=== PATIENT | male | born 1955 | race Caucasian/White ===

== ENCOUNTER 2017-09-16 20:06 | Emergency (ER) | payer OTHER ==
[~2017-09-16] VITALS: Ht 170.2 cm; Wt 92.1 kg
[~2017-09-16 20:06] MED LIST: ASPI325T45 PO; LPT40 PO; TNR50 PO
[2017-09-16 20:08] VITALS: TEMP 36.9; Ht 170.2 cm; Wt 92.1 kg
[2017-09-16 20:45] LABS: BASO % 0.3 %; BASO ABS # 0.02 K/uL (0-0.2); COMPLETE YES; EOS % 1.9 %; HEMATOCRIT 45.1 % (42-52); IG% 0.3 %; LYMPH % 19.4 %; LYMPH ABS # 1.54 K/uL (1.2-3.4); MEAN CELL VOLUME 87.2 fL (80-100); MEAN CORPUSCULAR HEMOGLOBIN 29.8 pg (25-34); MEAN CORPUSCULAR HGB CONC 34.1 g/dl (32-36); MEAN PLATELET VOLUME 9.4 fL (7.4-10.4); MONO % 10.6 %; NEUT % 67.5 %; PLATELET COUNT 200 K/uL (130-400); RED BLOOD COUNT 5.17 M/uL (4.7-6.1); WHITE BLOOD COUNT 7.95 K/uL (4.8-10.8)
[2017-09-16 21:09] LABS: BUN/CREATININE RATIO 19.8 (10-20); CALCIUM 8.6 mg/dl (8.5-10.1); CREATININE 1.31 mg/dl (0.60-1.40); POTASSIUM 3.9 mmol/L (3.5-5.1)
[2017-09-16] MEDS ORDERED: HIV POST EXPOSURE PROPHYLAXIS KIT STA (21:09)
--- NOTE | 2017-09-16 21:18 | EMERGENCY ROOM VISIT NOTE ---
History First contact with patient: 20:12 Chief Complaint: NEEDLE STICK Stated Complaint: NEEDLE STICK History of Present Illness The patient is a 62 year old male who presents to the Emergency Room with complaints of "needle stick". 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 He notes the area was bleeding. He is unsure of what the object was or who the patient may have been that this was from. His tetanus is up-to-date. He notes no pain. The region was cleansed. Review of Systems A complete 6-point Review of Systems was discussed with the patient, with pertinent positives and negatives listed in the History of Present Illness. All remaining Review of Systems questions can be considered negative unless otherwise specified. Past Medical/Surgical History Non contributory Family History Non contributory Social History Smoking Status: Never Smoker Alcohol Use: none Marital Status: single Patient is employed here and lives locally. Current/Historical Medications Scheduled Aspirin (Aspirin), 325 MG PO HS Atenolol (Atenolol), 50 MG PO HS Atorvastatin (Atorvastatin Calcium), 40 MG PO HS Emtricitabine/Temofovir (Truvada 200/300MG), 1 TAB PO DAILY Raltegravir Potassium (Isentress), 1 TAB PO BID Physical Exam Vital Signs Date Time Temp Pulse Resp B/P (MAP) Pulse Ox O2 Delivery O2 Flow Rate FiO2 09/16/17 21:38 69 20 124/79 97 09/16/17 20:08 36.9 76 18 139/86 96 Room Air Physical Exam VITAL SIGNS - Vital signs and nursing notes were reviewed. Stable. GENERAL -62-year-old male appearing his stated age who is in no acute distress. Communicates well with provider and answers questions appropriately. SKIN - Without rashes. Small punctate puncture wound noted to the palmar aspect of the left hand between the MCPs of the second and third digits. No active bleeding noted. No foreign body appreciated. EXTREMITIES - good blood flow to the hand without evidence of neurovascular compromise. Medical Decision & Procedures Laboratory Results 09/16/17 20:35 Red Blood Count 5.17, Mean Corpuscular Volume 87.2, Mean Corpuscular Hemoglobin 29.8, Mean Corpuscular Hemoglobin Concent 34.1, Mean Platelet Volume 9.4, Neutrophils (%) (Auto) 67.5, Lymphocytes (%) (Auto) 19.4, Monocytes (%) (Auto) 10.6, Eosinophils (%) (Auto) 1.9, Basophils (%) (Auto) 0.3, Neutrophils # (Auto ) 5.38, Lymphocytes # (Auto) 1.54, Monocytes # (Auto) 0.84, Eosinophils # (Auto ) 0.15, Basophils # (Auto) 0.02 09/16/17 20:35 Test 09/16/17 20:35 White Blood Count 7.95 K/uL (4.8-10.8) Red Blood Count 5.17 M/uL (4.7-6.1) Hemoglobin 15.4 g/dL (14.0-18.0) Hematocrit 45.1 % (42-52) Mean Corpuscular Volume 87.2 fL (80-100) Mean Corpuscular Hemoglobin 29.8 pg (25-34) Mean Corpuscular Hemoglobin Concent 34.1 g/dl (32-36) Platelet Count 200 K/uL (130-400) Mean Platelet Volume 9.4 fL (7.4-10.4) Neutrophils (%) (Auto) 67.5 % Lymphocytes (%) (Auto) 19.4 % Monocytes (%) (Auto) 10.6 % Eosinophils (%) (Auto) 1.9 % Basophils (%) (Auto) 0.3 % Neutrophils # (Auto) 5.38 K/uL (1.4-6.5) Lymphocytes # (Auto) 1.54 K/uL (1.2-3.4) Monocytes # (Auto) 0.84 K/uL (0.11-0.59) Eosinophils # (Auto) 0.15 K/uL (0-0.5) Basophils # (Auto) 0.02 K/uL (0-0.2) RDW Standard Deviation 39.9 fL (36.4-46.3) RDW Coefficient of Variation 12.5 % (11.5-14.5) Immature Granulocyte % (Auto) 0.3 % Immature Granulocyte # (Auto) 0.02 K/uL (0.00-0.02) Anion Gap 4.0 mmol/L (3-11) Est Creatinine Clear Calc Drug Dose 63.3 ml/min Estimated GFR () 67.2 Estimated GFR (Non- 57.9 BUN/Creatinine Ratio 19.8 (10-20) Calcium Level 8.6 mg/dl (8.5-10.1) Total Bilirubin 0.4 mg/dl (0.2-1) Aspartate Amino Transf (AST/SGOT) 24 U/L (15-37) Alanine Aminotransferase (ALT/SGPT) 41 U/L (12-78) Alkaline Phosphatase 88 U/L (45-117) Total Protein 6.9 gm/dl (6.4-8.2) Albumin 3.5 gm/dl (3.4-5.0) Globulin 3.4 gm/dl (2.5-4.0) Albumin/Globulin Ratio 1.0 (0.9-2) Medications Administered Medications (Trade) Dose Ordered Sig/Adonis Route Start Time Stop Time Status Last Admin Dose Admin Miscellaneous (Hiv Post Exposure Prophylaxis Kit) 1 ea NOW STAT N/A 09/16/17 21:09 09/16/17 21:10 DC 09/16/17 21:35 1 EA Medical Decision Patient was seen and evaluated as above. He presents to us today status post injury where a red biohazard bag had a sharp object penetrate through the bag through his glove and into his hand. This was in the laboratory area and other areas of the hospital today. Although the HIV risk and transmission risk is very low, because it was a biohazard bag and a sharp object which should not be in bag punctured through in a nature of which could be consistent with that of a needle I believe that HIV prophylaxis should be initiated. The case was discussed with the attending physician and I did initiate/try to call the PEP hotline however they were closed. I then queried their website. Although the risk is very low given the patient's unique circumstances I believe that the PEP should be initiated. Patient is in agreement. Baseline labs as well as yellow tubes for infectious testing by [employer] were obtained. Patient' s kidney function is slightly elevated as he appears to be dehydrated. He was educated upon this he is to follow-up with his family doctor. A phone call was placed to the employee health department regarding the patient's case. He is to follow up with them. He was given a three-day supply of the medication from here and subsequently the remainder was sent to his pharmacy for pickup. The wound was cleansed and dressed with a bacitracin dressing. Betadine was used. Patient was educated upon management, educated upon worrisome symptoms which to return, had questions as per discharge, and was discharged home in good condition. Impression Primary Impression: Sharps injury Departure Information Dispostion Home / Self-Care Condition GOOD Prescriptions Raltegravir Potassium (ISENTRESS) 400 Mg Tab 1 TAB PO BID for 25 Days, #25 TAB 0 Refills Prov: Arturo Dewey PA-C 09/16/17 Emtricitabine/Temofovir (Truvada 200/300MG) Tab 1 TAB PO DAILY for 25 Days, #25 TAB 0 Refills Prov: Arturo Dewey PA-C 09/16/17 Referrals Harjeet Haines M.D. (PCP) Patient Instructions My [facility] Additional Instructions You were seen in the emergency Department for a sharps accident to your left hand. As we discussed the chance of you acquiring HIV from this injury is very low however given the nature of the injury will begin prophylaxis. It is Truvada 1 tablet daily for 28 days. You were given the first 3 day supply here. The second medication is Isentress or Truvada which is 1 tablet every 12 hours for 28 days as well. Other 25 days sent to pharmacy for pickup. Please follow with [facility] by speaking with Ms. Nay Browning. If you've any difficulty please return here. Please follow with your family doctor as you do appear to be dehydrated with your kidney function here today. Please return with any new/concerning symptoms. Thank you for your time.
[2017-09-16] MEDS ORDERED: TRVHP PO (21:23)
[2017-09-16] MEDS ORDERED: RALT400T PO (21:23)
[2017-09-16 21:38] VITALS: BP 124/79; PULSE 69; O2SAT 97
== END 2017-09-16 21:41 | disposition home or self-care (01) ==
LOC: C.EDB 20:07 → C.EDD 21:41
DX: S61.432A Puncture wound without foreign body of left hand, initial encounter (principal); X58.XXXA Exposure to other specified factors, initial encounter; Y92.239 Unspecified place in hospital as the place of occurrence of the external cause; Y99.0 Civilian activity done for income or pay

== ENCOUNTER 2025-09-13 09:17 | Inpatient (IN) ==
[2025-09-13] MEDS: SODIUM CHLORIDE 0.9% 1,000 ML IV ONE (09:44)
[2025-09-13 09:53] LABS: Hematocrit (blood only) 47.8 % (42.0-52.0); Hemoglobin 16.1 g/dL (14.0-18.0); Immature Granulocytes # (auto) 0.05 K/uL (0.01-0.20); Immature Granulocytes % (auto) 0.6 %; Mean Corpuscular Hemoglobin 29.5 pg (25.0-34.0); Mean Corpuscular Volume 87.7 fL (80.0-100.0); Platelet Count 230 K/uL (130-400); RDW Standard Deviation 37.7 fL (36.4-46.3); Red Blood Count 5.45 M/uL (4.70-6.10); White Blood Count 8.34 K/ul (4.8-10.8)
--- NOTE | 2025-09-13 10:00 | Emergency Department Note ---
Impression & Plan New onset a-fib, Atrial fibrillation with rapid ventricular response, Chest tightness, Shortness of breath ED Provider Note NAME: SHRUTI GUPTA AGE: 70 SEX: M : 1955 ARRIVES VIA: Walk-In INFORMANT: Patient ED PROVIDER(S): Erick Early MD CHIEF COMPLAINT: Shortness of breath, chest pain PLAN: Disposition: Admit MEDICAL DECISION MAKING: The patient is a pleasant 70-year-old gentleman with a past medical history of heart disease, hypertension, hyperlipidemia who presents to the emergency department via walk-in accompanied by his for evaluation of chest pain and shortness of breath over the past 24 hours with fatigue/achy and shortness of breath beginning a couple of days ago. Patient denies any overt cough or congestion. However he is reminded of his symptoms a year ago which were similar and he was diagnosed with pneumonia. Of note, when patient was initially asked if he had a history of atrial fibrillation both he and his replied that he did saying that he had had "this" since he was in his 30s. However in retrospect after further assessment and review of his record he may be referring to having history of palpitations and possibly PVCs but there is no documented history of history of atrial fibrillation in the [facility] system. On my evaluation the patient no distress, fatigued appearing, afebrile with heart rate in the 120s-130s in atrial fibrillation vital signs otherwise stable. He appears clinically dry. EKG demonstrates atrial fibrillation with RVR in the 140s without overt acute ischemia. Chest x-ray negative for acute cardiopulmonary process per my preliminary independent interpretation. WBC, H/H and platelets within normal limits. Chemistry without metabolic acidosis. BUN/creatinine 27 consistent with patient's clinically dry appearance. LFTs are unremarkable. High-sensitivity troponin 6.1, within normal limits. Lipase is normal. Procalcitonin is not elevated. TSH within normal limits. COVID-19, influenza and and RSV PCR's were negative. The patient was treated with IV fluid hydration, IV APAP as well as 5 mg of IV Lopressor x 2 where he did experience some improvement in rate though still in the 110s-120s. Given the persistence of the patient's RVR which now after further review of the patient's record appears to be a new diagnosis the patient does agree with plan for admission for further management. Case was discussed with Dr. Kraft, [facility] hospitalist, who will evaluate the patient for admission. Further management including anticoagulation and rate control per admitting team. Triage Nursing notes reviewed and agree them. Prior/external medical records reviewed Vital Signs: reviewed Differential diagnosis: Reactive airway disease, pneumonia, pneumothorax, COPD, CHF, infections, cardiac ischemia, pulmonary embolism, musculoskeletal, gastrointestinal, as well as other pathologies. ER treatment provided: See below. Diagnostics interpreted by me: ECG: Atrial fibrillation with RVR, 140 bpm, no overt ST elevation or depression, QTc 464, QRS 82. Cardiac Monitoring: An order for continuous cardiac monitoring was placed and demonstrated atrial fibrillation with RVR, 140 bpm, no ectopy. Laboratory studies: See below Imaging studies: See below Consultation(s): Case was discussed with Dr. Kraft, [facility] hospitalist, who will evaluate the patient for admission. HPI: Per MDM. ROS: See above HPI for pertinent positives & negatives. A total of 10 systems reviewed and were otherwise negative. VITALS:See Below PHYSICAL EXAMINATION: GENERAL: Awake, alert, fartigued-appearing, in no distress HENT: Normocephalic, atraumatic. Oropharynx with dry mucous membranes and otherwise unremarkable. EYES: Normal conjunctiva. Sclera non-icteric. NECK: Supple. No nuchal rigidity. FROM. No JVD. RESPIRATORY: Clear to auscultation. CARDIAC: Tachycardic rate, irregular rhythm. Extremities warm and well perfused. Pulses equal. ABDOMEN: Soft, non-distended. No tenderness to palpation. No rebound or guarding. No masses. MUSCULOSKELETAL: Chest examination reveals no tenderness. The back is symmetrical on inspection without obvious abnormality. There is no CVA tenderness to palpation. No joint edema. LOWER EXTREMITIES: Calves are equal size bilaterally and non-tender. No edema. No discoloration. NEURO: Normal sensorium. No sensory or motor deficits noted. SKIN: No rash or jaundice noted. ED COURSE: Critical Care: I have personally spent greater than 35 minutes of critical care time in the direct management of this patient. This includes bedside care, interpretation of diagnostic studies, and testing, discussion with consultants, patient, and family members, and other required patient management activities. This 35 minutes is in excess of all separately billable procedures. Erick Early MD Past Med/Surg History Problem List (Updated 09/15/25 @ 14:30 by Erick Early MD) Shortness of breath (Acute) Chest tightness (Acute) Atypical chest pain Atrial fibrillation with rapid ventricular response (Acute) New onset a-fib (Acute) CAP (community acquired pneumonia) Encounter for pre-operative examination Heart disease Hyperlipidemia Medical History (Updated 09/15/25 @ 14:30 by Erick Early MD) Hypertension Surgical History No significant past surgical history Family History Other Diabetes Heart disease Hypertension Social History Smoking Status: Never smoker Hx Alcohol Use: No Hx Substance Use: No Preferred Language: Bel[place]an Communication Ability: Effective Him Specialists Required: No Beliefs That Will Affect Care: None marital status: Single Current Living Situation: Family current occupational status: employed Feels Safe at Home: Yes Assistive Devices: None Allergies Allergies Allergy/AdvReac Type Severity Reaction Status Date / Time Iodinated Contrast Media AdvReac Intermediate KIDNEY PAIN Verified 12/13/24 11:25 Home Meds Home Medications Medication Instructions Recorded Confirmed atorvastatin 40 mg tablet 40 mg PO HS 09/05/18 09/13/25 aspirin 81 mg tablet,delayed 81 mg PO HS 12/13/24 09/13/25 release Previous Rx's Medication Instructions Recorded apixaban 5 mg tablet (Eliquis) 5 mg PO BID #60 tabs 09/14/25 metoprolol succinate 25 mg 25 mg PO QAM #30 tabs 09/14/25 tablet,extended release 24 hr Results & Data (ED) Vital Signs Vital Signs - 24 hr 09/13/25 09:23 09/13/25 09:27 09/13/25 09:44 Temperature 36.3 C L Temperature Source Temporal Artery Scan Pulse Rate 80 Pulse Rate [Apical] Pulse Rate from SpO2 Sensor Respiratory Rate 18 Respiratory Effort / Characteristics Non-Labored Respiratory Depth Normal Respiratory Pattern Regular Blood Pressure 122/82 Blood Pressure [Right Arm] Blood Pressure Mean 95 Blood Pressure Mean [Right Arm] Pulse Oximetry 96 Oxygen Delivery Method Room Air Room Air Room Air Sepsis Recent Fever Within 48 Hours No Sepsis New/Unexplained Change in Mental Status N/A Sepsis Action Taken by Nursing No Action Required 09/13/25 09:49 09/13/25 09:50 09/13/25 10:03 Temperature Temperature Source Pulse Rate 124 H 130 H Pulse Rate [Apical] Pulse Rate from SpO2 Sensor 111 H Respiratory Rate 17 Respiratory Effort / Characteristics Respiratory Depth Respiratory Pattern Blood Pressure 118/87 Blood Pressure [Right Arm] Blood Pressure Mean 97 Blood Pressure Mean [Right Arm] Pulse Oximetry 97 Oxygen Delivery Method Room Air Room Air Sepsis Recent Fever Within 48 Hours Sepsis New/Unexplained Change in Mental Status Sepsis Action Taken by Nursing 09/13/25 10:21 09/13/25 10:30 09/13/25 11:09 Temperature Temperature Source Pulse Rate 130 H 124 H 136 H Pulse Rate [Apical] Pulse Rate from SpO2 Sensor 93 H 92 H Respiratory Rate 16 18 Respiratory Effort / Characteristics Respiratory Depth Respiratory Pattern Blood Pressure 119/86 110/74 127/87 Blood Pressure [Right Arm] Blood Pressure Mean 97 86 Blood Pressure Mean [Right Arm] Pulse Oximetry 98 98 Oxygen Delivery Method Room Air Room Air Sepsis Recent Fever Within 48 Hours Sepsis New/Unexplained Change in Mental Status Sepsis Action Taken by Nursing 09/13/25 11:44 09/13/25 12:02 09/13/25 12:30 Temperature Temperature Source Pulse Rate 145 H 160 H 159 H Pulse Rate [Apical] Pulse Rate from SpO2 Sensor Respiratory Rate Respiratory Effort / Characteristics Respiratory Depth Respiratory Pattern Blood Pressure 104/81 125/83 114/81 Blood Pressure [Right Arm] Blood Pressure Mean Blood Pressure Mean [Right Arm] Pulse Oximetry Oxygen Delivery Method Sepsis Recent Fever Within 48 Hours Sepsis New/Unexplained Change in Mental Status Sepsis Action Taken by Nursing 09/13/25 12:32 Temperature Temperature Source Pulse Rate Pulse Rate [Apical] 130 H Pulse Rate from SpO2 Sensor Respiratory Rate 20 Respiratory Effort / Characteristics Non-Labored Spontaneous Respiratory Depth Normal Respiratory Pattern Regular Blood Pressure Blood Pressure [Right Arm] 108/82 Blood Pressure Mean Blood Pressure Mean [Right Arm] 90 Pulse Oximetry 99 Oxygen Delivery Method Room Air Sepsis Recent Fever Within 48 Hours Sepsis New/Unexplained Change in Mental Status Sepsis Action Taken by Nursing Laboratory Data Attestation: I reviewed the patient's lab results. 09/13/25 09:40 09/13/25 09:40 Lab Results 09/13/25 09/13/25 09/13/25 Range/Units 09:40 09:46 10:16 WBC 8.34 (4.8-10.8) K/ul RBC 5.45 (4.70-6.10) M/uL Hgb 16.1 (14.0-18.0) g/dL Hct 47.8 (42.0-52.0) % MCV 87.7 (80.0-100.0) fL MCH 29.5 (25.0-34.0) pg MCHC 33.7 (32.0-36.0) g/dL RDW Std Deviation 37.7 (36.4-46.3) fL RDW Coeff of Heavenly 11.8 (11.5-14.5) % Plt Count 230 (130-400) K/uL MPV 9.4 (9.4-12.4) fL Immature Gran % (Auto) 0.6 % Neut % (Auto) 62.9 % Lymph % (Auto) 22.4 % Cass % (Auto) 10.6 % Eos % (Auto) 3.0 % Baso % (Auto) 0.5 % Neut # (Auto) 5.25 (1.40-6.50) K/uL Lymph # (Auto) 1.87 (1.20-3.40) K/uL Cass # (Auto) 0.88 H (0.11-0.59) K/uL Eos # (Auto) 0.25 (0.00-0.50) K/uL Baso # (Auto) 0.04 (0.00-0.20) K/uL Immature Gran # (Auto) 0.05 (0.01-0.20) K/uL PT 10.3 (9.0-12.0) Seconds INR 1.0 (0.9-1.1) Sodium 139 (136-145) mmol/L Potassium 4.6 (3.5-5.1) mmol/L Chloride 106 (98-107) mmol/L Carbon Dioxide 28 (21-32) mmol/L Anion Gap 5 (3-11) BUN 26 H (6-23) mg/dl Creatinine 0.96 (0.6-1.4) mg/dl Est Cr Clr Drug Dosing 81.9 ml/min eGFR 85.03 BUN/Creatinine Ratio 27.1 H (10-20) Glucose 129 H (70-99(Fasting)) mg/dl Calcium 8.9 (8.6-10.3) mg/dl Magnesium 2.2 (1.7-2.4) mg/dl Total Bilirubin 0.6 (0.2-1.0) mg/dl AST 16 (13-39) U/L ALT 17 (7-52) U/L Alkaline Phosphatase 78 (34-104) U/L Troponin I High Sens 6.1 (0-20) pg/ml Total Protein 6.6 (6.0-8.3) gm/dl Albumin 4.0 (3.4-5.0) gm/dl Globulin 2.6 (2.5-4.0) gm/dl Albumin/Globulin Ratio 1.5 (0.9-2) Lipase 16 (11-82) U/L Procalcitonin 0.02 (0-0.5) ng/ml Free T3 2.76 (2.3-4.2) pg/ml SARS-CoV-2 (PCR) NEGATIVE (Negative) Influenza Type A (PCR) Negative (Neg) Influenza Type B (PCR) Negative (Neg) RSV (RT-PCR) Negative (Neg) Administered Medications Discontinued Medications Apixaban (Apixaban 5 Mg Tablet) 5 mg PO ONE ONE Stop: 09/13/25 13:21 Last Admin: 09/13/25 13:59 Dose: 5 mg Documented By: KR Apixaban (Apixaban 5 Mg Tablet) 5 mg PO BID MELISSA Stop: 10/13/25 20:59 Last Admin: 09/14/25 07:39 Dose: 5 mg Documented By: Admin: 09/13/25 20:13 Dose: 5 mg Documented By: KRT Aspirin (Aspirin 81 Mg Ectab) 81 mg PO HS MELISSA Stop: 10/13/25 20:59 Last Admin: 09/13/25 20:13 Dose: 81 mg Documented By: KRT Atorvastatin Calcium (Atorvastatin 40 Mg Tab) 40 mg PO HS MELISSA Stop: 10/13/25 20:59 Last Admin: 09/13/25 20:13 Dose: 40 mg Documented By: KRT Diltiazem HCl (Diltiazem Hcl 5 Mg/Ml 5 Ml Vial) 5 mg IV NOW STA Stop: 09/13/25 13:05 Last Admin: 09/13/25 13:37 Dose: Not Given Documented By: AMS Furosemide (Furosemide 40 Mg/4 Ml Vial) 40 mg IV ONE ONE Stop: 09/13/25 15:02 Last Admin: 09/13/25 17:02 Dose: 40 mg Documented By: LICHA Sodium Chloride (Nss) 1,000 mls @ 999 mls/hr IV .Q1H1M ONE Stop: 09/13/25 10:28 Last Infusion: 09/13/25 10:54 Dose: Infused Documented By: Admin: 09/13/25 09:44 Dose: 999 mls/hr Documented By: SEBASTIAN Acetaminophen (Ofirmev) 1,000 mg in 100 mls @ 400 mls/hr IV NOW STA Stop: 09/13/25 10:11 Last Infusion: 09/13/25 10:36 Dose: Infused Documented By: Admin: 09/13/25 10:20 Dose: 400 mls/hr Documented By: SEBASTIAN Diltiazem HCl 125 mg/ Dextrose 125 mls @ 0 mls/hr IV .Q0M [facility]; Protocol Stop: 10/13/25 13:19 Last Titration: 09/13/25 18:14 Dose: Infused Documented By: LICHA Co-signed By: ANTHONY Titration: 09/13/25 15:42 Dose: 0 mg/hr, 0 mls/hr Documented By: LICHA Co-signed By: TB Admin: 09/13/25 13:57 Dose: 5 mg/hr, 5 mls/hr Documented By: SAMUEL Co-signed By: ASTON Metoprolol Succinate (Metoprolol Succ 25mg Ext Rel Tab) 25 mg PO QAM [facility] Stop: 10/14/25 08:59 Last Admin: 09/14/25 07:39 Dose: 25 mg Documented By: LICHA Metoprolol Tartrate (Metoprolol Tartrate 1 Mg/Ml Vial) 5 mg IV NOW STA Stop: 09/13/25 11:00 Last Admin: 09/13/25 11:09 Dose: 5 mg Documented By: leonardo Metoprolol Tartrate (Metoprolol Tartrate 1 Mg/Ml Vial) 5 mg IV NOW STA Stop: 09/13/25 11:57 Last Admin: 09/13/25 12:02 Dose: 5 mg Documented By: leonardo Metoprolol Tartrate (Metoprolol Tartrate 25 Mg Tab) 25 mg PO BID [facility] Stop: 10/13/25 12:29 Last Admin: 09/13/25 12:37 Dose: 25 mg Documented By: KR Imaging Data Radiologist's Impression: Chest X-Ray 09/13/25 09:27 Clinical History: Chest pain Technique: A frontal view of the chest was obtained Findings: There are no confluent pulmonary infiltrates. The heart size is within normal limits. No pleural effusion or pneumothorax is seen. There is no definite pulmonary nodule. No fracture is noted. No foreign body is seen Impression: No active disease Electronically signed by Josh Ortega 09-13-2025 10:20 AM Discharge Plan Visit Data Chief Complaint: Shortness of Breath/Dyspnea Stated Complaint: SOB ED Provider: Erick Early Discharge Problem: New onset a-fib, Atrial fibrillation with rapid ventricular response, Chest tightness, Shortness of breath Patient Disposition: Admitted As Inpatient Condition: Good Discharge Instructions Interventions: ED Discharge Assessment Last Done: 09/13/25 15:06
[2025-09-13 10:10] LABS: Alanine Aminotransferase 17.0 U/L (7-52); Albumin Globulin Ratio 1.5 (0.9-2); Albumin Level 4.0 gm/dl (3.4-5.0); Alkaline Phosphatase 78.0 U/L (34-104); Anion Gap 5.0 (3-11); Bilirubin,Total 0.6 mg/dl (0.2-1.0); Blood Urea Nitrogen 26.0 mg/dl (6-23); Calcium 8.9 mg/dl (8.6-10.3); Carbon Dioxide 28.0 mmol/L (21-32); Chloride 106.0 mmol/L (98-107); Creatinine Clr Calc Pharmacy 81.9 ml/min; Globulin 2.6 gm/dl (2.5-4.0); Glucose 129.0 mg/dl (70-99(Fasting)); Lipase 16.0 U/L (11-82); Potassium 4.6 mmol/L (3.5-5.1); Sodium 139.0 mmol/L (136-145); Total Protein 6.6 gm/dl (6.0-8.3)
[2025-09-13] MEDS: ACETAMINOPHEN 1,000 MG/100 ML VIAL IV STA (10:20)
--- NOTE | 2025-09-13 10:20 | XRay Report ---
Clinical History: Chest pain Technique: A frontal view of the chest was obtained Findings: There are no confluent pulmonary infiltrates. The heart size is within normal limits. No pleural effusion or pneumothorax is seen. There is no definite pulmonary nodule. No fracture is noted. No foreign body is seen Impression: No active disease Electronically signed by Josh Ortega 09-13-2025 10:20 AM
[2025-09-13 10:30] LABS: INR 1.0 (0.9-1.1); Prothrombin Time 10.3 Seconds (9.0-12.0)
[2025-09-13 10:31] LABS: Influenza A virus by PCR Negative (Neg); Influenza B virus by PCR Negative (Neg); SARS CoV2 RNA(COVID-19) Ceph NEGATIVE (Negative)
[2025-09-13] MEDS: METOPROLOL TARTRATE 1 MG/ML VIAL IV STA ×2 (11:09→12:02)
--- NOTE | 2025-09-13 12:20 | History & Physical Report ---
Date of Service September 13, 2025 Assessment & Plan (1) New onset a-fib: Plan: 70-year-old male who presents with 4 days of worsenedShortness of breath, fatigue and intermittent fluttering in his chest. He is found to be in new A- fib with RVR. Previously was evaluated for palpitation/irregular heartbeat however did not show evidence of A-fib on any prior workups and is not anticoagulated. New Onset Afib - Reports he has previously had intermittent irregular heartbeats, as well as [facility] cardiology for atypical chest discomfort and palpitations in 2012. 10-day MCOT was unremarkable. Stress echo 06/2023 was negative for ischemia. He has been on aspirin, atenolol, atorvastatin since 2013 when this was initially. No alcohol use Likely underlying sleep apnea Echo pending. Renal function normal [id number] 2. risks/benefits of Eliquis discussed. No contraindications, no history of bleeding. Would like to start Eliquis for stroke prophylaxis. Eliquis started. Potassium 4.6. Magnesium 2.2. Inadequate control following metoprolol IV 5 mg x 3 and metoprolol tartrate 25 mg p.o. x 1..BP [id number] at the bedside, rate fluctuating still 120s/[id number] at bedside re-eval Diltiazem gtt. ordered for inadequate rate control on metoprolol. Antiarrhythmics avoided due to unclear duration and lack of anticoagulation. Atenolol discontinued - CXR clear, lungs CTAB on exam. 99% on RA. No JVD. No evidence of rate related failure. 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 He is sometimes short of breath sometimes not and this goes away with rest after 5 minutes. He reports that exertion does not always bring out his chest discomfort, but does sometimes. He had a stress test over 10 years ago which was normal. He does not feel that his symptoms changed over the last year up until this past . 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 Repeat stat EKG and add repeat troponin if he has any recurrent pain Cardiology consulted for A-fib as noted Echo pending Suspected undiagnosed MCKAY High risk by STOP-BANG, 7 points Snores loudly per his . Has excessive daytime sleepiness and does not feel rested despite sleeping for an adequate number of hours. May have some pauses when breathing overnight. He does have hypertension. BMI is not greater than 35. Age is greater than 50, neck circumference is greater than 40 cm measured at the bedside, male gender CPAP at bedtime ordered Hyperlipidemia Continue statin DVT prophylaxis: Eliquis started Disposition: PCU CODE STATUS: Full code (2) Hypertension: (3) Hyperlipidemia: History of Present Illness Primary Care Provider: Harjeet Haines MD Yasmeen is a 70-year-old male with past medical history of hyperlipidemia, hypertension who presented to the emergency department with shortness of breath and chest discomfort was found to be in A-fib RVR. He is not anticoagulated, he is on aspirin, atenolol, and atorvastatin No leukocytosis Creatinine normal, 0.96 Troponin is not elevated Procalcitonin not elevated Quad screen negative Chest x-ray no acute findings Yasmeen reports he has felt off an with intermittent dyspnea and heart racing for the last 4 days. Some chest discomfort intermittently. Has been seen for an irregular heart by Dr. Wilburn in the past. They talked about doing a loop recorder decades ago, but did not end up pursing this. No dx of 'atrial fibrillation' but thinks he had a sometimes irregular heart beat. He has never been on or recommended a blood thinner. Takes atenolol, baby aspirin, and atorvastatin. He takes all medications at night and took his meds last night. He reports every once and a while he will get a brief pain in his chest sometimes in the morning, sometimes with activity. DOesn't last more than 5- 10minutes. Does get sweaty sometimes when this occurs. 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 No pain at rest, but if he rests it passes in 5-10 minutes. Hasn't really changed in the last 2-3 years. Exercise may bring this out but not always. Endorses shortness of breath laying down occasionally which can prevent him from sleeping. He does not feel rested when he wakes up. Snores and sometimes pauses at night per his . +leg swelling in both legs which improves atn ight. Swelling in his R leg since he had surgery in it SHx: R ankle fxr w/ nj repair after a cow kicked him 3 years ago. No afib at that time. No history of heart failure No history of DM No history of strokes No history of blood No sleep opnea. Medical History: Reviewed Medications: Reviewed Surgical History: Reviewed Family history: Reviewed Allergies: Reviewed Social History: No tobacco use. No tobacco use. Code Status: Full Allergies Allergy/AdvReac Type Severity Reaction Status Date / Time Iodinated Contrast Media AdvReac Intermediate KIDNEY PAIN Verified 12/13/24 11:25 Home Medications Medication Instructions Recorded Confirmed Type atenolol 50 mg tablet 50 mg PO HS 09/05/18 09/13/25 History atorvastatin 40 mg tablet 40 mg PO HS 09/05/18 09/13/25 History aspirin 81 mg tablet,delayed 81 mg PO HS 12/13/24 09/13/25 History release Past Med/Surg History Problem List (Updated 09/13/25 @ 13:40 by Aleksandar Kraft MD) New onset a-fib CAP (community acquired pneumonia) Encounter for pre-operative examination Heart disease Hyperlipidemia Medical History (Updated 09/13/25 @ 13:40 by Aleksandar Kraft MD) Hypertension Surgical History No significant past surgical history Family History Other Diabetes Heart disease Hypertension Social History Smoking Status: Never smoker Hx Alcohol Use: No Preferred Language: Spanish Communication Ability: Effective marital status: Single Current Living Situation: Family current occupational status: employed Feels Safe at Home: Yes Physical Exam Physical Exam: General: A&Ox3. NAD. Cooperative. HEENT: Atraumatic, normocephalic. Pulm: CTAB A&P. -wheezes, -rales, -rhonchi. Symmetrical chest rise. No increased work of breathing. No respiratory distress. Cardiac: irir, tachycardic, -mrg. Radial pulses intact and symmetrical. No JVD. Abdominal: Nontender, nondistended, soft. BS present. Ext: Trace indentation of socks. MInimal pitting edema b/l Results & Data Results & Data Vital Signs (Past 12 Hours) Vital Signs Temp Pulse Resp BP Pulse Ox O2 Del Method 09/13/25 12:02 160 H 125/83 09/13/25 11:44 145 H 104/81 09/13/25 11:09 136 H 127/87 09/13/25 10:30 124 H 18 110/74 98 Room Air 09/13/25 10:21 130 H 16 119/86 98 Room Air 09/13/25 10:03 130 H 17 118/87 97 Room Air 09/13/25 09:50 124 H 09/13/25 09:49 Room Air 09/13/25 09:44 Room Air 09/13/25 09:27 Room Air 09/13/25 09:23 36.3 C L 80 18 122/82 96 Room Air PG Care Time/CCT Total # of Minutes Spent Total Time Spent with Patient: Total time spent is greater than 50% in coordination of care (as documented) at patient's floor/unit and/or counseling patient: Coding Level of Care Code 34246 INT INP/OBS CARE 3/75MIN Diagnoses New onset a-fib I48.91 Hypertension I10 Hyperlipidemia E78.5
[2025-09-13] MEDS: METOPROLOL TARTRATE 25 MG TAB PO SCH (12:37)
[2025-09-13] MEDS ORDERED: STAT IV Infusion **Titration per Protocol STA (13:04)
[2025-09-13 13:21] LABS: Magnesium 2.2 mg/dl (1.7-2.4)
[2025-09-13] MEDS: APIXABAN 5 MG TABLET PO ONE (13:59)
--- NOTE | 2025-09-13 14:18 | XCELERA ---
[id number]
--- NOTE | 2025-09-13 14:23 | Cardiology Consultation ---
Date of Consultation September 13, 2025 Assessment & Plan (1) New onset a-fib: (2) Hyperlipidemia: Plan Assessment: 70 year old male with history of HTN and HLD presents to the ER with 4 day history of progressively worsening shortness of breath as well as palpitations. EKG demonstrates A-fib with RVR rates varying 120-160's. Very limited response to IV lopressor x3 and therefore started on IV Cardizem gtt. Cardiology consulted for further evaluation and recommendations. Plan: 1. New onset A-fib with RVR -Patient with 4 day history of palpitations and shortness of breath. Mild lower extremity edema. EKG confirmed A-fib with RVR which is new for patient -Prior history of cardiac work up for palpitations in 2013 including stress echo, holter and MCOT unremarkable at that time. -Per discussion with patient and family, high suspicion of MCKAY as he snores, has terrible sleep quality, has witnessed apnea and "wakes himself"--will need sleep med referral outpatient for further work up. -Electrolytes stable, no evidence of anemia. Check TSH. -patient is typically on atenolol for hx of HTN. This will be stopped in lieu of starting cardizem gtt. further BP recommendations will be made pending response to IV medications. -Review of telemetry currently shows A-fib rates 120-130's -Troponin negative x2. No acute ischemic changes on initial EKG. Patient is not having active chest pain, but has endorsed some intermittent episodes over the past few months with exertion lasting 5-10minutes. He would benefit from a nuclear stress test to exclude ischemia given his new onset A-fib, recent symptoms, and risk factors. This can be arranged outpatient. -Echocardiogram obtained today showing A-fib with RVR, preserved LVEF 55-60%, trace MR and borderline dilated ascending aorta of 3.7cm. No contraindication for use of CCB. -Discussed pathophysiology in detail with both patient and family of Atrial fibrillation as well as plan of care outlined above. Primary team has already discussed risk for a thromboembolic event s/t A-fib. [id number] score 2. patient verbalizes understanding and is in agreement to start oral anticoagulation with Eliquis 5mg PO BID. Please have case management check on cost affordability for patient, and provide patient with 30 day trial card if needed. 2. HLD -Continue Atorvastatin 40mg PO HS as per home regimen Case has been discussed with Dr. Horton. Further recommendations regarding plan of care as per her assessment. I spent a total of 50 minutes on the date of service in preparation, delivery, documentation of the care provided to the patient excluding any time spent in the performance of separately billed services. KITTY [facility] Supervising Physician Co-Signing Physician Notes I have reviewed the advanced practitioner's documentation on the date of service referenced in note, and I agree with, and take responsibility for the plan of care. I spent a total of [30] minutes coordinating, documenting, and providing care for this patient excluding time spent in the performance of separately billed services or time spent by another provider. 70 year HTN, HLD, presented with palpitations and shortness of breath, episodes of chest discomfort with noted to be in afib with fast heart rates. reports sob when laying down for past few days Echo shows normal EF history of snoring - needs sleep study as outpt afib on Cardizem converted to sinus start metoprolol xl 25 mg day discontinue atenolol started on ELiquis outpatient - nulcear stress test one dose of LAsix today History of Present Illness Reason for Consultation: New onset A-fib Requesting Physician: Dr. Kenyon History of Present Illness HPI: Patient is a 70 year old male with PMHx significant for HTN, HLD that presented to the ER with 4 day history of shortness of breath, fatigue and intermittent fluttering. He reports that he is not having any chest pain at this time, but has had some in the recent weeks with exertion, lasting only 5-10 minutes. His current symptoms have been persistent and are described as both a pressure and "flip-flopping". He feels that they improved with administration of AV clyde blockers. EKG upon arrival demonstrates A-fib with RVR. he received IV Lopressor x3 doses with interval improvement in heart rate;however, heart rate trended back upward into the 130's with burst into the 160's. He was started on a cardizem gtt. Patient was last evaluated by cardiology dating back to 2013 for atypical chest discomfort and palpitations. He underwent a stress echocardiogram which was negative for inducible ischemia, a holter and 10 day MCOT which were unremarkable. Chest xray negative. Review of telemetry shows atrial fibrillation with rates in the 130's. Rare PVC Allergies Allergy/AdvReac Type Severity Reaction Status Date / Time Iodinated Contrast Media AdvReac Intermediate KIDNEY PAIN Verified 12/13/24 11:25 Home Medications Medication Instructions Recorded Confirmed Type atenolol 50 mg tablet 50 mg PO HS 09/05/18 09/13/25 History atorvastatin 40 mg tablet 40 mg PO HS 09/05/18 09/13/25 History aspirin 81 mg tablet,delayed 81 mg PO HS 12/13/24 09/13/25 History release Patient History Medical History (Updated 09/13/25 @ 17:03 by Erick Early MD) Hypertension Surgical History No significant past surgical history Family History Other Diabetes Heart disease Hypertension Social History Smoking Status: Never smoker Hx Alcohol Use: No Hx Substance Use: No Preferred Language: Filipino Communication Ability: Effective Director Funds Development Required: No Beliefs That Will Affect Care: None marital status: Single Current Living Situation: Family current occupational status: employed Other Information That Helps Us Care for You: No Feels Safe at Home: Yes Safety Concerns: Feels Safe At This Time Assistive Devices: None Review of Systems Review of Systems: All systems reviewed & are unremarkable except as noted in HPI & below Physical Exam Constitutional: well developed and well nourished; no acute distress and not ill appearing Neck: normal visual inspection and trachea midline Respiratory: normal respiratory effort; no respiratory distress, no labored breathing and no cough Auscultation: + diminished lung sounds (bilateral bases ); no crackles, no rales, no rhonchi and no wheezes Cardiovascular: Rate/Rhythm: + tachycardic and + irregularly irregular Heart Sounds: normal S1 and normal S2; no murmur Vessels: dorsalis pedis pulses present; no JVD Extremities: + edema (trace to +1 BLE Right> left (prior injury) ) Skin: no rashes, warm and dry Psychiatric: A+Ox3, euthymic affect Results & Data Vital Signs (Past 12 Hours) Vital Signs Temp Pulse Pulse Resp BP BP Pulse Ox 09/13/25 13:37 129 H 09/13/25 12:32 130 H 20 108/82 99 09/13/25 12:30 159 H 114/81 09/13/25 12:02 160 H 125/83 09/13/25 11:44 145 H 104/81 09/13/25 11:09 136 H 127/87 09/13/25 10:30 124 H 18 110/74 98 09/13/25 10:21 130 H 16 119/86 98 09/13/25 10:03 130 H 17 118/87 97 09/13/25 09:50 124 H 09/13/25 09:49 09/13/25 09:44 09/13/25 09:27 09/13/25 09:23 36.3 C L 80 18 122/82 96 O2 Del Method 09/13/25 13:37 09/13/25 12:32 Room Air 09/13/25 12:30 09/13/25 12:02 09/13/25 11:44 09/13/25 11:09 09/13/25 10:30 Room Air 09/13/25 10:21 Room Air 09/13/25 10:03 Room Air 09/13/25 09:50 09/13/25 09:49 Room Air 09/13/25 09:44 Room Air 09/13/25 09:27 Room Air 09/13/25 09:23 Room Air Laboratory Results Cardiac Enzymes 09/13/25 Range/Units 09:40 AST 16 (13-39) U/L Troponin I High Sens 6.1 (0-20) pg/ml Coagulation 09/13/25 Range/Units 09:40 PT 10.3 (9.0-12.0) Seconds CBC 09/13/25 Range/Units 09:40 WBC 8.34 (4.8-10.8) K/ul RBC 5.45 (4.70-6.10) M/uL Hgb 16.1 (14.0-18.0) g/dL Hct 47.8 (42.0-52.0) % Plt Count 230 (130-400) K/uL Neut # (Auto) 5.25 (1.40-6.50) K/uL Lymph # (Auto) 1.87 (1.20-3.40) K/uL Iron # (Auto) 0.88 H (0.11-0.59) K/uL Eos # (Auto) 0.25 (0.00-0.50) K/uL Baso # (Auto) 0.04 (0.00-0.20) K/uL Comprehensive Metabolic Panel 09/13/25 Range/Units 09:40 Sodium 139 (136-145) mmol/L Potassium 4.6 (3.5-5.1) mmol/L Chloride 106 (98-107) mmol/L Carbon Dioxide 28 (21-32) mmol/L BUN 26 H (6-23) mg/dl Creatinine 0.96 (0.6-1.4) mg/dl Glucose 129 H (70-99(Fasting)) mg/dl Calcium 8.9 (8.6-10.3) mg/dl AST 16 (13-39) U/L ALT 17 (7-52) U/L Alkaline Phosphatase 78 (34-104) U/L Total Protein 6.6 (6.0-8.3) gm/dl Albumin 4.0 (3.4-5.0) gm/dl Intake and Output 09/13/25 09/13/25 09/13/25 06:59 14:59 22:59 Intake Total 1100 / 1100 Balance 1100 / 1100 Intake: IV 1100 / 1100 Acetaminophen 1,000 mg In 100 100 / 100 ml @ 400 mls/hr IV NOW STA Rx#: [id number] Sodium Chloride 0.9% 1,000 ml @ 1000 / 1000 999 mls/hr IV .Q1H1M ONE Rx#: [id number] Other: Weight 99.5 kg Weight Measurement Method Chair Scale Patient Weight 09/14/25 06:59 Weight 99.5 kg PG Care Time/CCT Total # of Minutes Spent Total Time Spent with Patient: Total time spent is greater than 50% in coordination of care (as documented) at patient's floor/unit and/or counseling patient: Coding Level of Care Code 94911 IN/OBS CONSULT LVL 5,80M Diagnoses New onset a-fib I48.91 Hyperlipidemia E78.5 Time Spent (min) 50
[2025-09-13] MEDS ORDERED: ACETAMINOPHEN 325 MG TAB PO PRN (15:38)
[2025-09-13] MEDS: FUROSEMIDE 40 MG/4 ML VIAL IV ONE (17:02)
--- NOTE | 2025-09-13 17:21 | Billing Data ---
Date of Service September 13, 2025 Coding Level of Care Code 46563 CRITICAL CARE 1ST 30-74M Time Spent (min) 35 Comment on direct management of afib rvr in addition to other care
[2025-09-13] MEDS: APIXABAN 5 MG TABLET PO SCH (20:13)
[2025-09-13] MEDS: ATORVASTATIN 40 MG TAB PO SCH (20:13)
[2025-09-13] MEDS: ASPIRIN 81 MG ECTAB PO SCH (20:13)
[2025-09-14] MEDS: METOPROLOL SUCC 25MG EXT REL TAB PO SCH (07:39)
--- NOTE | 2025-09-14 09:53 | Discharge Summary ---
Discharge Summary Date of Service September 14, 2025 Principal Dx & Hospital Course #1 = Principal Diagnosis (1) New onset a-fib: The patient converted back to normal sinus rhythm. Appreciate cardiology consultation. Atenolol has been switched over to metoprolol XL and he has been started on Eliquis. Appreciate cardiology consultation and recommendations. Continue telemetry while hospitalized. (2) Atypical chest pain: No evidence of acute coronary syndrome. Troponin levels are nontrending. EKGs reveal no acute changes (3) Hypertension: Stable. Atenolol has been switched to metoprolol XL (4) Hyperlipidemia: Stable. Continue statin therapy Plan Home today, September 14. Follow-up with primary care provider and cardiology as soon as possible Admission HPI Per Admitting Provider Yasmeen is a 70-year-old male with past medical history of hyperlipidemia, hypertension who presented to the emergency department with shortness of breath and chest discomfort was found to be in A-fib RVR. He is not anticoagulated, he is on aspirin, atenolol, and atorvastatin No leukocytosis Creatinine normal, 0.96 Troponin is not elevated Procalcitonin not elevated Quad screen negative Chest x-ray no acute findings Yasmeen reports he has felt off an with intermittent dyspnea and heart racing for the last 4 days. Some chest discomfort intermittently. Has been seen for an irregular heart by Dr. Wilburn in the past. They talked about doing a loop recorder decades ago, but did not end up pursing this. No dx of 'atrial fibrillation' but thinks he had a sometimes irregular heart beat. He has never been on or recommended a blood thinner. Takes atenolol, baby aspirin, and atorvastatin. He takes all medications at night and took his meds last night. He reports every once and a while he will get a brief pain in his chest sometimes in the morning, sometimes with activity. DOesn't last more than 5- 10minutes. Does get sweaty sometimes when this occurs. 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 No pain at rest, but if he rests it passes in 5-10 minutes. Hasn't really changed in the last 2-3 years. Exercise may bring this out but not always. Endorses shortness of breath laying down occasionally which can prevent him from sleeping. He does not feel rested when he wakes up. Snores and sometimes pauses at night per his . +leg swelling in both legs which improves atn ight. Swelling in his R leg since he had surgery in it SHx: R ankle fxr w/ nj repair after a cow kicked him 3 years ago. No afib at that time. No history of heart failure No history of DM No history of strokes No history of blood No sleep opnea. Medical History: Reviewed Medications: Reviewed Surgical History: Reviewed Family history: Reviewed Allergies: Reviewed Social History: No tobacco use. No tobacco use. Code Status: Full Discharge Plan Discharge Items Patient Disposition: Home - Self-Care Reason For Visit: NEW AFIB RVR Discharge Diagnosis: Paroxysmal atrial fibrillation with rapid ventricular rate Condition on Discharge: Good Activity: Resume your previous activity Non-emergency contact: Primary Care Provider Call non-emergency contact if: you have any medication questions and your symptoms worsen Follow-up/Referrals: Harjeet Haines MD [Primary Care Provider] - Diet: Regular and Heart Healthy Addtl Attending Provider Instructions: Metoprolol succinate replaces atenolol. Take blood thinner Eliquis (apixaban) twice daily. All other medications remain the same. New prescriptions have been sent to your pharmacy. See your primary care provider soon as possible for follow-up Pending Studies at Discharge: Yes Studies:: Free T3 and free T4 levels are ordered and pending Stand-Alone Forms: [facility], Smoking Cessation Medications and DC Order Prescriptions: New metoprolol succinate 25 mg Tablet Extended Release 24 Hr 25 mg PO QAM Qty: 30 0RF Eliquis 5 mg Tablet 5 mg PO BID Qty: 60 0RF Continued atorvastatin 40 mg tablet 40 mg PO HS aspirin 81 mg Tablet,Delayed Release (Dr/Ec) 81 mg PO HS Discontinued atenolol 50 mg tablet 50 mg PO HS Discharge Orders: Discharge Order (Routine); Ordered 09/14/25 Ordered By: Benitez Palomo Admission Data Admit Date/Time: 09/13/25 13:27 Attending Provider: Benitez Palomo Admit Provider: Aleksandar Kraft Primary Care Provider: Harjeet Haines Other Providers: Aleksandar Kraft; Charmaine Horton Hospital Stay Data Consultations 09/13/25 12:28 ED Decision to Admit Stat 09/13/25 15:38 Consult Cardiology Routine Pending Results Patient Have Any Pending Studies at Discharge: Yes Discharge Instructions Given to Patient (Per Discharging Provider) Metoprolol succinate replaces atenolol. Take blood thinner Eliquis (apixaban) twice daily. All other medications remain the same. New prescriptions have been sent to your pharmacy. See your primary care provider soon as possible for follow-up Total Time Total Time Spent Total Time Spent (In Minutes): 45 minutes. Total time included patient exam, discharge planning, medication reconciliation Coding Level of Care Code 79682 INP/OBS DISCH >30 MIN Diagnoses New onset a-fib I48.91 Atypical chest pain R07.89 Hypertension I10 Hyperlipidemia E78.5
[2025-09-14 10:48] VITALS: RESP 18; TEMP 98.2; O2SAT 95
[2025-09-14 12:08] VITALS: BP 105/70; PULSE 75
--- NOTE | 2025-09-14 14:13 | Electrocardiogram Report ---
Test Reason : Blood Pressure : */* mmHG Vent. Rate : 140 BPM Atrial Rate : * BPM P-R Int : * ms QRS Dur : 82 ms QT Int : 304 ms P-R-T Axes : * 43 -9 degrees QTcB Int : 464 ms Atrial fibrillation with rapid ventricular response Abnormal ECG When compared with ECG of 06-Dec-2024 21:15, Atrial fibrillation has replaced Sinus rhythm Confirmed by Amauri Mendez ([id number]) on 09/14/2025 2:13:48 PM Referred By: REFERRED SELF Confirmed By: Amauri Mendez
--- NOTE | 2025-09-14 14:15 | Electrocardiogram Report ---
Test Reason : Blood Pressure : */* mmHG Vent. Rate : 57 BPM Atrial Rate : 57 BPM P-R Int : 126 ms QRS Dur : 86 ms QT Int : 392 ms P-R-T Axes : 18 41 8 degrees QTcB Int : 381 ms Sinus bradycardia Otherwise normal ECG When compared with ECG of 13-Sep-2025 09:38, (unconfirmed) Sinus rhythm has replaced Atrial fibrillation Vent. rate has decreased by 83 bpm Confirmed by Amauri Mendez ([id number]) on 09/14/2025 2:14:50 PM Referred By: REFERRED SELF Confirmed By: Amauri Mendez
--- NOTE | 2025-09-14 14:35 | Electrocardiogram Report ---
Test Reason : Blood Pressure : */* mmHG Vent. Rate : 74 BPM Atrial Rate : 74 BPM P-R Int : 132 ms QRS Dur : 92 ms QT Int : 402 ms P-R-T Axes : 39 51 18 degrees QTcB Int : 446 ms Normal sinus rhythm Normal ECG When compared with ECG of 13-Sep-2025 15:49, (unconfirmed) QT has lengthened Confirmed by Amauri Mendez ([id number]) on 09/14/2025 2:35:37 PM Referred By: REFERRED SELF Confirmed By: Amauri Mendez
== END 2025-09-14 12:09 | disposition home or self-care (01) | DRG 310 ==
LOC: ED 09:17 → 2S 13:27 → SUATTDRO 13:27 → 2S 15:06